=== PATIENT | male | born 1990 | race Caucasian/White ===

== ENCOUNTER 2019-02-23 11:35 | Emergency (ER) | payer BC ==
[2019-02-23] MEDS ORDERED: Lidocaine 2% 5 ML SDV INJECT ONE (11:36)
[2019-02-23] MEDS ORDERED: Morphine 2 MG/ML Syringe IVPUSH ONE (11:50)
[2019-02-23] MEDS ORDERED: Ketorolac 30 MG/ML SDV IVPUSH ONE (11:50)
[2019-02-23] MEDS ORDERED: Baclofen 10 MG Tab PO ONE (11:53)
--- NOTE | 2019-02-23 14:38 | EDM.PDOC ---
ED HPI GENERAL MEDICAL PROBLEM - General Chief Complaint: Back Pain or Injury Stated Complaint: BACK PAIN Time Seen by Provider: 02/23/19 11:35 Source of Information: Reports: Patient History Limitations: Reports: No Limitations - History of Present Illness INITIAL COMMENTS - FREE TEXT/NARRATIVE: Patient presented to the ED because of worsening low back pain. He has a history of chronic low back pain but it has been worse for the past 5 days since he fell. He rate his pain 10/10 and worse with movements. - Related Data Allergies Allergy/AdvReac Type Severity Reaction Status Date / Time oxycodone Allergy Itching Verified 02/23/19 12:01 Home Meds: Home Meds Acetaminophen/HYDROcodone [Ragland 325-5 MG] 1 - 2 tab PO Q4H PRN #15 tab [Rx] Cyclobenzaprine [Flexeril] 10 mg PO TID #15 tab 02/23/19 [Rx] Past Medical History Musculoskeletal History: Reports: Other (See Below) Other Musculoskeletal History: prior low back pain/pulled muscles - Past Surgical History HEENT Surgical History: Reports: Other (See Below) Other HEENT Surgeries/Procedures: wisdom teeth removal Musculoskeletal Surgical History: Reports: Other (See Below) Other Musculoskeletal Surgeries/Procedures:: knee surgery Social & Family History - Family History Family Medical History: Noncontributory - Tobacco Use Smoking Status *Q: Heavy Tobacco Smoker Years of Tobacco use: 6 Packs/Tins Daily: 1 - Caffeine Use Caffeine Use: Reports: Energy Drinks, Soda - Recreational Drug Use Recreational Drug Use: No ED ROS GENERAL - Review of Systems Review Of Systems: See Below Constitutional: Reports: No Symptoms HEENT: Reports: No Symptoms Respiratory: Reports: No Symptoms Endocrine: Reports: No Symptoms GI/Abdominal: Reports: No Symptoms : Reports: No Symptoms Musculoskeletal: Reports: Back Pain Skin: Reports: No Symptoms Neurological: Reports: No Symptoms Psychiatric: Reports: No Symptoms ED EXAM,LOWER BACK PAIN/INJURY - Physical Exam Exam: See Below Exam Limited By: No Limitations General Appearance: Alert, No Apparent Distress Eye Exam: Bilateral Eye: PERRL Ears: Normal External Exam, Normal Canal, Hearing Grossly Normal Nose: Normal Inspection, Normal Mucosa Throat/Mouth: Normal Inspection, Normal Lips, Normal Teeth Head: Atraumatic, Normocephalic Neck: Normal Inspection, Supple, Non-Tender, Full Range of Motion Respiratory/Chest: No Respiratory Distress, Lungs Clear, Normal Breath Sounds Cardiovascular: Normal Peripheral Pulses, Regular Rate, Rhythm, No Edema, No Gallop, No JVD GI/Abdominal: Normal Bowel Sounds, Soft, Non-Tender, No Organomegaly Back Exam: Decreased Range of Motion, Muscle Spasm, Paraspinal Tenderness Extremities: Normal Inspection Course - Vital Signs Text/Narrative:: MRI Lumbar spine was reviewed with patient and verbalized full understanding Morphine 4 mg IV x1 toradol 30 mg IV x1 Baclofen 10 mg PO x1 Right side of the lumbar spine was sterilized with an iodine swab then infiltrated with 5 ml of 2% lidocaine. Patient tolerated the procedure well without any complication and with good pain relief. Last Recorded V/S: Last Vital Signs Temp 37.1 C 02/23/19 11:35 Pulse 57 L 02/23/19 12:24 Resp 18 02/23/19 12:24 BP 131/62 02/23/19 12:24 Pulse Ox 97 02/23/19 12:24 - Orders/Labs/Meds Orders: Active Orders 24 hr Category Date Time Status Lumbar Spine Comp wo Cont [MR] Stat Exams 02/23/19 12:29 Taken Meds: Medications Discontinued Medications Generic Name Dose Route Start Last Admin Trade Name Freq PRN Reason Stop Dose Admin Baclofen 10 mg 02/23/19 11:53 02/23/19 12:11 Lioresal PO 02/23/19 11:54 10 mg ONETIME ONE Administration Ketorolac Tromethamine 30 mg 02/23/19 11:50 02/23/19 12:08 Toradol IVPUSH 02/23/19 11:51 30 mg ONETIME ONE Administration Lidocaine HCl 10 ml 02/23/19 14:45 Xylocaine-Mpf 2% (Sterile-Phil) INJECT 02/23/19 14:46 ONETIME ONE Morphine Sulfate 4 mg 02/23/19 11:50 02/23/19 12:10 Morphine IVPUSH 02/23/19 11:51 4 mg ONETIME ONE Administration Departure - Departure Time of Disposition: 15:00 Disposition: Home, Self-Care 01 Condition: Good Clinical Impression: Degenerative disc disease - Discharge Information Prescriptions: Acetaminophen/HYDROcodone [Ragland 325-5 MG] 1 - 2 tab PO Q4H PRN #15 tab PRN Reason: Pain Cyclobenzaprine [Flexeril] 10 mg PO TID #15 tab Instructions: Degenerative Disk Disease Referrals: Georgiana Damon PA-C [Primary Care Provider] - Forms: ED Department Discharge Additional Instructions: please read discharge instructions on degenerative disc disease(DDD) apply ice or heat whichever makes the pain feel better flexeril 1 tablet 3 times daily as needed for muscle spasm norrco 5/325, take 1-2 tablets every 4-6 hours as needed for pain follow up if symptoms persist Sepsis Event Note - Evaluation Sepsis Screening Result: No Definite Risk - Focused Exam Vital Signs: Vital Signs Temp Pulse Resp BP Pulse Ox 02/23/19 12:24 57 L 18 131/62 97 02/23/19 11:35 37.1 C 61 14 137/69 100 Date Exam was Performed: 02/23/19 Time Exam was Performed: 15:22 - My Orders Last 24 Hours: My Active Orders 02/23/19 12:29 Lumbar Spine Comp wo Cont [MR] Stat - Assessment/Plan Last 24 Hours: My Active Orders 02/23/19 12:29 Lumbar Spine Comp wo Cont [MR] Stat
[2019-02-23] MEDS ORDERED: Lidocaine 2% 10 ML Amp INJECT ONE (14:45)
== END 2019-02-23 15:15 | disposition home or self-care (01) ==
LOC: FB.ED 11:35
DX: M51.36 Other intervertebral disc degeneration, lumbar region (principal); F17.210 Nicotine dependence, cigarettes, uncomplicated; Z88.5 Allergy status to narcotic agent
CPT/HCPCS: 72148; 96374; 96375; 99284-25; A9270-GY; J1885; J2001; J2270